=== PATIENT | male | born 1985 | race Caucasian/White ===

== ENCOUNTER → 2016-05-25 | Outpatient (CLI) | payer OTHER ==
--- NOTE | 2016-06-02 11:42 | SLEEPCENT ---
DATE OF STUDY: 05/25/2016 REFERRING PROVIDER: Dr. Rock Grove INTERPRETATION: Nocturnal polysomnography was performed for the evaluation of sleep apnea syndrome symptoms consisting of excessive daytime sleepiness, insomnia, snoring, morning headaches, nonrestorative sleep. A total of 6 hours and 39 minutes of data was reviewed with 299.5 minutes of sleep identified. Sleep latency was 35 minutes. No slow wave or deep sleep were seen. Sleep efficiency was reduced at 76%. Electrocardiogram (EKG) showed normal sinus rhythm with an average heart rate of 62 beats per minute. Speeding and slowing was noted surrounding some respiratory events. No epileptiform discharge was observed. There were 80 respiratory events identified of 10 seconds in duration or longer for an apnea-hypopnea index (AHI) of 16.0. Respiratory event related arousal (RERA) index was 5.2 and the total respiratory disturbance index (RDI) of 21.2. The events were predominantly obstructive hypopneas/apneas. In reviewing the tracing, there were many unscored events index higher. Arousal index was 33.3. Mean oxygen saturation for the study was 96% with a minimum recorded value of 89%. Periodic limb movement index was 17.2. IMPRESSION: 1. Obstructive sleep apnea, moderate. 2. Periodic limb movement, mild. RECOMMENDATIONS: Recommend the patient return to the sleep disorder center for the determination of pressure therapy. Pending this intervention, alcohol and sedative usage should be avoided and care should be taken when operating a motor vehicle.
== END ==
LOC: M SLEEP 20:17
PROVIDERS: ATTEND Internal Medicine Pulmonary Disease
DX: G47.39 Other sleep apnea (principal)

== ENCOUNTER 2016-06-20 23:44 | Emergency (ER) | payer OTHER ==
[~2016-06-20] VITALS: Ht 182.9 cm; Wt 86.2 kg
[2016-06-20] MEDS ORDERED: ADDE20CA PO (23:57)
[2016-06-20] MEDS ORDERED: PROZ20CA11 PO (23:57)
[2016-06-20] MEDS ORDERED: ADDE30CA PO (23:57)
[2016-06-21] MEDS ORDERED: ONDANSETRON 4MG/2ML VIAL (J2405) IV ONE (00:15)
[2016-06-21] MEDS ORDERED: KETOROLAC 30 MG/ML VIAL (J1885) IV ONE (00:15)
[2016-06-21] MEDS ORDERED: NS 1,000 ML IV ONE (00:15)
[2016-06-21 00:48] LABS: BASO # 0.1 K/mm3 (0.0-0.2); BASO % 0.9 % (0.0-1.0); EOS # 0.8 K/mm3 (0.0-0.50); EOS % 8.5 % (0.0-3.0); LARGE UNSTAINED CELL # 0.2 K/mm3 (0.0-0.4); LARGE UNSTAINED CELL % 1.9 % (0.0-4.0); LYMPH # 3.3 K/mm3 (1.5-6.5); LYMPH % 31.3 % (24.0-44.0); MEAN CORPUSCULAR HGB CONC 34.9 g/dl (32.0-36.5); MEAN CORPUSCULAR VOLUME 86.1 fl (80.0-96.0); MONO # 0.4 K/mm3 (0.0-0.8); MONO % 4.4 % (0.0-5.0); NEUTROPHILS # 5.2 K/mm3 (1.8-7.7); NEUTROPHILS % 52.9 % (36.0-66.0); PLATELET COUNT, AUTOMATED 302 k/mm3 (150-450); RED CELL DISTRIBUTION WIDTH 13.3 % (11.5-14.5); WHITE BLOOD COUNT 9.8 K/mm3 (4.0-10.0)
--- NOTE | 2016-06-21 00:50 | REPUSA ---
CT of the abdomen and pelvis without contrast Clinical statement: Pain. Technique: Multiple axial CT images were obtained from the base of the lungs to the floor of the pelv is utilizing 5 mm axial slices without administration of contrast. Coronal and sagittal reconstructio ns were also obtained. No comparison is available. Findings: Chest: The visualized lung bases are clear. Abdomen: The kidneys are normal in size bilaterally. There is no evidence of hydronephrosis or nephro lithiasis. The liver, spleen, pancreas, gallbladder and adrenal glands are unremarkable. The aorta de monstrates normal caliber and contour. There is no abdominal lymphadenopathy or ascites. Pelvis: The bowel is unremarkable, with no obstructive or inflammatory changes. The appendix is froylan l. The urinary bladder is within normal limits. There is no pelvic lymphadenopathy or ascites. The ot her pelvic structures appear unremarkable. Bones: There are no suspicious osseous abnormalities seen. Impression: Unremarkable CT examination of the abdomen and pelvis.
[2016-06-21 01:10] VITALS: BP 144/86
[2016-06-21 01:10] LABS: ALBUMIN 3.8 GM/DL (3.2-5.2); ALBUMIN/GLOBULIN RATIO 1.19 (1.00-1.93); ALKALINE PHOSPHATASE 78 U/L (45-117); ALT/SGPT 43 U/L (12-78); ANION GAP 7 MEQ/L (8-16); AST/SGOT 31 U/L (15-37); BILIRUBIN,DIRECT < 0.1 MG/DL (0.0-0.2); BILIRUBIN,TOTAL 0.3 MG/DL (0.2-1.0); BLOOD UREA NITROGEN 13 MG/DL (7-18); CARBON DIOXIDE LEVEL 27 MEQ/L (21-32); CHLORIDE LEVEL 106 MEQ/L (98-107); CREATININE FOR GFR 0.79 MG/DL (0.70-1.30); GLOMERULAR FILTRATION RATE > 60.0 (>60); GLUCOSE, FASTING 103 MG/DL (70-105); POTASSIUM SERUM 3.7 MEQ/L (3.5-5.1); SODIUM LEVEL 140 MEQ/L (136-145)
== END 2016-06-21 01:10 | disposition home or self-care (01) ==
LOC: M ED 06-21 00:27
DX: R10.9 Unspecified abdominal pain (principal); Z79.899 Other long term (current) drug therapy; Z91.030 Bee allergy status; F90.9 Attention-deficit hyperactivity disorder, unspecified type
CPT/HCPCS: 36415; 74176; 80048; 80076; 81001; 83690; 85025; 96361; 96374; 96375; 99282; J1885; J2405

== ENCOUNTER → 2016-07-03 | Outpatient (CLI) | payer OTHER ==
[~2016-07-03] MED LIST: ADDE20CA PO; ADDE30CA PO; PROZ20CA11 PO
--- NOTE | 2016-07-09 22:13 | SLEEPCENT ---
DATE OF PROCEDURE: 07/03/2016 REFERRING PHYSICIAN: Rock Romero MD INTERPRETATION: Nocturnal polysomnography was performed for the determination of pressure therapy in this patient with moderate obstructive sleep apnea with an apnea-hypopnea index (AHI) of 16 and respiratory disturbance index (RDI) of 21.2. Symptoms included excessive daytime sleepiness, insomnia, snoring, morning headaches, and nonrestorative sleep. A total of 7 hours and 29 minutes of data was reviewed with 348.5 minutes of sleep identified. Sleep latency was 53.5 minutes. Rapid eye movement (REM) latency was 72.5 minutes. No slow wave sleep was identified. Sleep efficiency was 79.1%. EKG showed sinus bradycardia with an average heart rate of 50 beats per minute. No epileptiform discharge observed. The patient had been fit with a ResMed Quattro FX full face mask of medium size, 4 cm of water pressure was applied to the circuit and the lights were dimmed. CPAP initially began at 4 cm of water pressure, was taken to a high of 12 cm of water pressure. It was felt that 6 cm of water pressure was adequate. There still appeared to be some change in flow in REM sleep on this pressure. However, on this pressure, his AHI was 0 and his respiratory arousal index (GERARD) was 6.9. Oxygen saturations were in the 90th percentile. No significant periodic limb movements. IMPRESSION: Obstructive sleep apnea (G47.33), moderate, reasonably palliated on CPAP at 6 cm of water pressure. The flow wave form tracing appeared somewhat limited in REM sleep. RECOMMENDATIONS: Recommend continuation of CPAP therapy at the above pressure via a medium ResMed Quattro FX full face mask or mask of his preference. Clinical correlation will be necessary to ensure eradication of symptoms. MTDD
== END ==
LOC: M SLEEP 20:09
PROVIDERS: ATTEND Internal Medicine Pulmonary Disease
DX: G47.33 Obstructive sleep apnea (adult) (pediatric) (principal)

== ENCOUNTER 2017-03-03 08:10 | Day surgery (SDC) | payer OTHER ==
[~2017-03-03] VITALS: Ht 182.9 cm; Wt 95.7 kg
[~2017-03-03 08:10] MED LIST changes: -ADDE20CA PO; +ADDE20CA3 PO; -ADDE30CA PO; +ADDE30CA3 PO; +BIMA01SOL OU; +FLUO20CA19 PO; +LORA10TA2 PO; +MELA3TAB PO; +MICA80TA PO; +NICO7DIS4 TOP; +PANT40TA2 PO
[2017-03-03] MEDS ORDERED: NS 1,000 ML IV ONE (08:15)
[2017-03-03] MEDS ORDERED: LIDOCAINE 2% INJ 100 MG/5 ML SDV (FOR ANES.) As Ordered ONE (09:14)
[2017-03-03] MEDS ORDERED: PROPOFOL 500 MG/50 ML VIAL As Ordered ONE (09:14)
[2017-03-03] MEDS ORDERED: MIDAZOLAM INJ 2 MG/2 ML VIAL (J2250) As Ordered ONE (09:28)
--- NOTE | 2017-03-03 09:32 | ROOR ---
Patient Name: Neto Shaw Procedure Date: 03/03/2017 9:12 AM Date of : 1985 Age: 32 Room: [facility] Gender: Male Note Status: Finalized Procedure: Upper Endoscopy + Biopsies Indications: Heartburn, Exclusion of Quintanilla's esophagus Providers: Gurjit Mishra MD Referring MD: JEVON MAS MD Requesting Provider: Medicines: Monitored Anesthesia Care Complications: No immediate complications. Procedure: Pre-Anesthesia Assessment: - The heart rate, respiratory rate, oxygen saturations, blood pressure, adequacy of pulmonary ventilation, and response to care were monitored throughout the procedure. The Endoscope was introduced through the mouth, and advanced to the second part of duodenum. The upper GI endoscopy was accomplished without difficulty. The patient tolerated the procedure well. Findings: The Z-line was irregular and was found 40 cm from the incisors. Multiple biopsies were obtained with cold forceps for evaluation to rule out Quintanilla's Esophagus randomly at the gastroesophageal junction. A small hiatal hernia was present. No other significant abnormalities were identified in a careful examination of the stomach. The exam of the duodenum was otherwise normal. Impression: - Z-line irregular, 40 cm from the incisors. - Small hiatal hernia. - Multiple biopsies were obtained at the gastroesophageal junction. - The examination was otherwise normal. Recommendation: - Patient has a contact number available for emergencies. The signs and symptoms of potential delayed complications were discussed with the patient. Return to normal activities tomorrow. Written discharge instructions were provided to the patient. - High fiber diet. - Discharge patient to home. - Follow an antireflux regimen. - Continue present medications. - Await pathology results. - Telephone GI clinic for pathology results in 1 week. - Return to referring physician. - The findings and recommendations were discussed with the patient's family. Gurjit Mihsra MD Gurjit Mishra MD 03/03/2017 9:32:02 AM This report has been signed electronically. Number of Addenda: 0 Note Initiated On: 03/03/2017 9:12 AM Estimated Blood Loss: Estimated blood loss: none.
--- NOTE | 2017-03-03 09:49 | ROOR ---
Patient Name: Neto Shaw Procedure Date: 03/03/2017 9:14 AM Date of : 1985 Age: 32 Room: [facility] Gender: Male Note Status: Finalized Procedure: Total Colonoscopy to Cecum + Bx. To r/o Microscopic Colitis Indications: Clinically significant diarrhea of unexplained origin Providers: Gurjit Mishra MD Referring MD: JEVON MAS MD Requesting Provider: Medicines: Monitored Anesthesia Care Complications: No immediate complications. Procedure: Pre-Anesthesia Assessment: - The heart rate, respiratory rate, oxygen saturations, blood pressure, adequacy of pulmonary ventilation, and response to care were monitored throughout the procedure. The Colonoscope was introduced through the anus and advanced to the cecum, identified by appendiceal orifice and ileocecal valve. The colonoscopy was performed without difficulty. The patient tolerated the procedure well. The quality of the bowel preparation was excellent. Findings: The perianal and digital rectal examinations were normal. Non-bleeding internal hemorrhoids were found during retroflexion. The hemorrhoids were small and Grade I (internal hemorrhoids that do not prolapse). No other significant abnormalities were identified in a careful examination of the remainder of the colon. Biopsies for histology were taken with a cold forceps from the ascending colon and transverse colon for evaluation of microscopic colitis. Impression: - Non-bleeding internal hemorrhoids. - Biopsies were taken with a cold forceps from the ascending colon and transverse colon for evaluation of microscopic colitis. - The exam was otherwise normal to the cecum. Recommendation: - Patient has a contact number available for emergencies. The signs and symptoms of potential delayed complications were discussed with the patient. Return to normal activities tomorrow. Written discharge instructions were provided to the patient. - High fiber diet. - Discharge patient to home. - Continue present medications. - Await pathology results. - Telephone GI clinic for pathology results in 1 week. - Check Portal Online for Path Results.([email or web address]) - The findings and recommendations were discussed with the patient's family. Gurjit Mishra MD Gurjit Mishra MD 03/03/2017 9:48:28 AM This report has been signed electronically. Number of Addenda: 0 Note Initiated On: 03/03/2017 9:14 AM Estimated Blood Loss: Estimated blood loss: none.
[2017-03-03 10:20] VITALS: BP 124/79
== END 2017-03-03 10:40 | disposition home or self-care (01) ==
LOC: M OPP 08:10
PROVIDERS: ATTEND Internal Medicine Gastroenterology
DX: R19.7 Diarrhea, unspecified (principal); K64.0 First degree hemorrhoids; R12 Heartburn; K22.8 Other specified diseases of esophagus; K44.9 Diaphragmatic hernia without obstruction or gangrene; I10 Essential (primary) hypertension; K21.9 Gastro-esophageal reflux disease without esophagitis; F41.9 Anxiety disorder, unspecified; F32.9 Major depressive disorder, single episode, unspecified; G47.30 Sleep apnea, unspecified; R06.83 Snoring; F17.210 Nicotine dependence, cigarettes, uncomplicated; Z91.030 Bee allergy status; Z79.899 Other long term (current) drug therapy
CPT/HCPCS: 43239; 45380; 88305; J2250

== ENCOUNTER 2020-08-08 12:02 | Emergency (ER) | payer OTHER, SELFPAY ==
[~2020-08-08] VITALS: Ht 182.9 cm; Wt 90.9 kg
[~2020-08-08 12:02] MED LIST changes: -FLUO20CA19 PO; +FLUO20CA20 PO; +FLUO20CA22 PO; +HYDR50CA2 PO; +LORA-243 PO; -LORA10TA2 PO; +LOSA100T5 PO; -MELA3TAB PO; +MELA3TAB70 PO; +NALT50TA4 PO; +NICO21PAT TD; -PANT40TA2 PO; +PANT40TA29 PO
[2020-08-08 12:37] LABS: HEMATOCRIT 43.3 % (42.0-52.0); HEMOGLOBIN 14.7 g/dl (13.5-17.5); MEAN CORPUSCULAR HEMOGLOBIN 31.5 pg (27.0-33.0); MEAN CORPUSCULAR HGB CONC 33.9 g/dl (32.0-36.5); MEAN CORPUSCULAR VOLUME 92.9 fl (80.0-96.0); PLATELET COUNT, AUTOMATED 281 10^3/uL (150-450); RED BLOOD COUNT 4.66 10^6/uL (4.30-6.10); WHITE BLOOD COUNT 9.6 10^3/uL (4.0-10.0)
[2020-08-08 13:13] LABS: ACETAMINOPHEN LEVEL < 2.0 UG/ML (10.0-30.0); ALT/SGPT 43 U/L (12-78); BILIRUBIN,DIRECT 0.3 MG/DL (0.0-0.2); BLOOD UREA NITROGEN 7 MG/DL (7-18); CALCIUM LEVEL 9.4 MG/DL (8.5-10.1); CARBON DIOXIDE LEVEL 27 MEQ/L (21-32); CHLORIDE LEVEL 105 MEQ/L (98-107); CREATININE FOR GFR 0.83 MG/DL (0.70-1.30); ETHYL ALCOHOL (ETHANOL) 0.128 % (0.000-0.010); GLOMERULAR FILTRATION RATE > 60.0 (>60); GLUCOSE, FASTING 106 MG/DL (70-100); POTASSIUM SERUM 3.9 MEQ/L (3.5-5.1); SALICYLATE LEVEL < 1.7 MG/DL (5.0-30.0); SODIUM LEVEL 139 MEQ/L (136-145); TOTAL PROTEIN 7.2 GM/DL (6.4-8.2)
[2020-08-08 13:18] LABS: AMPHETAMINES LEVEL URINE NEGATIVE (NEGATIVE); BARBITURATES URINE NEGATIVE (NEGATIVE); BENZODIAZEPINES URINE NEGATIVE (NEGATIVE); CANNABINOIDS URINE POSITIVE (NEGATIVE); COCAINE METABOLITE URINE NEGATIVE (NEGATIVE); METHADONE URINE NEGATIVE (NEGATIVE); OPIATES URINE NEGATIVE (NEGATIVE); PHENCYCLIDINE URINE NEGATIVE (NEGATIVE)
[2020-08-08] MEDS ORDERED: METOPROLOL TART 50 MG TAB PO ONE (13:20)
[2020-08-08] MEDS ORDERED: OXAZEPAM 15 MG CAP PO ONE (13:20)
[2020-08-08 13:41] VITALS: BP 169/104
[2020-08-08] MEDS ORDERED: NICOTINE 21MG/24HR 1 EA TRANSDERMAL TD ONE (19:50)
[2020-08-08 23:42] VITALS: BP 145/84
--- NOTE | 2020-08-09 20:27 | ECGEPIP ---
[facility] - ED Test Date: 2020-08-08 Pat Name: SHANTANU UP Department: Room: - Gender: Male Provider Network Analyst: NIECY : 1985 Requested By: TRELL García Order Number: [id number] Reading MD: Isis Corona Measurements Intervals [place] Rate: 57 P: 37 WA: 128 QRS: 61 QRSD: 92 T: 42 QT: 438 QTc: 426 Interpretive Statements Sinus bradycardia early repolarization Electronically Signed on 08-09-2020 20:27:05 EDT by Isis Corona
== END 2020-08-08 23:46 ==
LOC: M ED 12:02
DX: F32.9 Major depressive disorder, single episode, unspecified (principal); F10.10 Alcohol abuse, uncomplicated; R00.1 Bradycardia, unspecified; R45.851 Suicidal ideations; I10 Essential (primary) hypertension; H40.9 Unspecified glaucoma; F17.200 Nicotine dependence, unspecified, uncomplicated; Z79.899 Other long term (current) drug therapy

== ENCOUNTER → 2021-11-10 | Outpatient (CLI) | payer OTHER ==
[~2021-11-10] MED LIST changes: +FLUO-96 PO; -FLUO20CA20 PO
== END ==
LOC: M OUTALCOH 09:05
PROVIDERS: ATTEND Psychiatry & Neurology Psychiatry
DX: Z13.39 Encounter for screening examination for other mental health and behavioral disorders (principal)

== ENCOUNTER 2021-11-18 09:00 | Outpatient (RCR) | payer OTHER | END 2021-11-19 | LOC: M OUTALCOH 09:00 | PROVIDERS: ATTEND Psychiatry & Neurology Psychiatry | DX: F10.20 Alcohol dependence, uncomplicated (principal); F12.10 Cannabis abuse, uncomplicated; Z72.0 Tobacco use ==

== ENCOUNTER 2021-12-18 08:56 | Outpatient (RCR) | payer OTHER | END 2021-12-19 | LOC: M OUTALCOH 08:56 | PROVIDERS: ATTEND Psychiatry & Neurology Psychiatry | DX: F10.20 Alcohol dependence, uncomplicated (principal); F12.10 Cannabis abuse, uncomplicated; Z72.0 Tobacco use ==

== ENCOUNTER → 2022-01-19 | Outpatient (RCR) | payer OTHER | LOC: M OUTALCOH 12-23 16:07 | PROVIDERS: ATTEND Psychiatry & Neurology Psychiatry | DX: F10.20 Alcohol dependence, uncomplicated (principal); F12.10 Cannabis abuse, uncomplicated; Z72.0 Tobacco use ==

== ENCOUNTER 2022-02-17 08:00 | Outpatient (RCR) | payer OTHER | END 2022-02-18 | LOC: M OUTALCOH 08:00 | PROVIDERS: ATTEND Psychiatry & Neurology Psychiatry | DX: F10.20 Alcohol dependence, uncomplicated (principal); F12.10 Cannabis abuse, uncomplicated; Z72.0 Tobacco use ==

== ENCOUNTER 2022-03-13 11:00 | Outpatient (RCR) | payer OTHER | END 2022-03-21 | LOC: M OUTALCOH 11:00 | PROVIDERS: ATTEND Psychiatry & Neurology Psychiatry | DX: F10.20 Alcohol dependence, uncomplicated (principal); F12.10 Cannabis abuse, uncomplicated; Z72.0 Tobacco use ==

== ENCOUNTER → 2022-04-21 | Outpatient (RCR) | payer OTHER | LOC: M OUTALCOH 03-30 11:28 | PROVIDERS: ATTEND Psychiatry & Neurology Psychiatry | DX: F10.20 Alcohol dependence, uncomplicated (principal); F12.10 Cannabis abuse, uncomplicated; Z72.0 Tobacco use ==

== ENCOUNTER 2022-05-18 08:40 | Outpatient (RCR) | payer OTHER | END 2022-05-19 | LOC: M OUTALCOH 08:40 | PROVIDERS: ATTEND Psychiatry & Neurology Psychiatry | DX: F10.20 Alcohol dependence, uncomplicated (principal); F12.10 Cannabis abuse, uncomplicated; Z72.0 Tobacco use ==

== ENCOUNTER → 2022-06-19 | Outpatient (RCR) | payer OTHER | LOC: M OUTALCOH 05-20 12:47 | PROVIDERS: ATTEND Psychiatry & Neurology Psychiatry | DX: F10.20 Alcohol dependence, uncomplicated (principal); F12.10 Cannabis abuse, uncomplicated; Z72.0 Tobacco use ==

== ENCOUNTER 2022-07-17 08:40 | Outpatient (RCR) | payer OTHER | END 2022-07-19 | LOC: M OUTALCOH 08:40 | PROVIDERS: ATTEND Psychiatry & Neurology Psychiatry | DX: F10.20 Alcohol dependence, uncomplicated (principal); F12.10 Cannabis abuse, uncomplicated; Z72.0 Tobacco use ==

== ENCOUNTER 2022-07-24 08:40 | Outpatient (RCR) | payer OTHER ==
[2022-08-24] MEDS ORDERED: VIVI380I IM (09:57)
== END 2022-08-19 ==
LOC: M OUTALCOH 08:40
PROVIDERS: ATTEND Psychiatry & Neurology Psychiatry
DX: F10.20 Alcohol dependence, uncomplicated (principal); F17.200 Nicotine dependence, unspecified, uncomplicated

== ENCOUNTER → 2022-08-19 | Outpatient (CLI) | payer OTHER ==
[~2022-08-19] MED LIST changes: +VIVI380I IM
== END ==
LOC: M OUTALCOH 07:53
PROVIDERS: ATTEND Psychiatry & Neurology Psychiatry
DX: Z13.39 Encounter for screening examination for other mental health and behavioral disorders (principal)

== ENCOUNTER → 2022-09-02 | Outpatient (CLI) | payer OTHER ==
[2022-09-02 14:59] LABS: BASO # 0.1 10^3/uL (0.0-0.2); BASO % 0.8 % (0.0-1.0); EOS # 0.7 10^3/uL (0.0-0.5); HEMATOCRIT 42.7 % (42.0-52.0); HEMOGLOBIN 14.7 g/dl (13.5-17.5); LYMPH # 3.1 10^3/uL (1.5-5.0); LYMPH % 28.3 % (24.0-44.0); MEAN CORPUSCULAR HEMOGLOBIN 30.6 pg (27.0-33.0); MEAN CORPUSCULAR HGB CONC 34.4 g/dl (32.0-36.5); MEAN CORPUSCULAR VOLUME 88.8 fl (80.0-96.0); MONO # 0.6 10^3/uL (0.0-0.8); MONO % 5.8 % (2.0-8.0); NEUTROPHILS # 6.4 10^3/uL (1.5-8.5); NEUTROPHILS % 58.9 % (36.0-66.0); PLATELET COUNT, AUTOMATED 350 10^3/uL (150-450); RED BLOOD COUNT 4.81 10^6/uL (4.30-6.10); WHITE BLOOD COUNT 10.8 10^3/uL (4.0-10.0)
[2022-09-02 15:08] LABS: APPEARANCE, URINE CLEAR (CLEAR); BACTERIA, URINE AUTO NEGATIVE (NEGATIVE); BILIRUBIN, URINE AUTO NEGATIVE (NEGATIVE); BLOOD, URINE BLOOD NEGATIVE (NEGATIVE); COLOR, URINE STRAW (YELLOW); GLUCOSE, URINE (UA) AUTO NEGATIVE (NEGATIVE); KETONE, URINE AUTO NEGATIVE (NEGATIVE); LEUKOCYTE ESTERASE, URINE AUTO NEGATIVE (NEGATIVE); NITRITE, URINE AUTO NEGATIVE (NEGATIVE); PROTEIN, URINE AUTO NEGATIVE (NEGATIVE); RBC, URINE AUTO 2 /HPF (0-3); SPECIFIC GRAVITY URINE AUTO 1.009 (1.002-1.035); SQUAMOUS EPITHELIAL CELL UR AU 0 /HPF (0-6); UROBILINOGEN, URINE AUTO 0.2 mg/dL (0.0-2.0); WBC, URINE AUTO 4 /HPF (0-3)
[2022-09-02 15:27] LABS: BLOOD UREA NITROGEN 13 MG/DL (9-23); CALCIUM LEVEL 9.8 MG/DL (8.5-10.1); CARBON DIOXIDE LEVEL 26 MMOL/L (20-31); CHLORIDE LEVEL 104 MMOL/L (98-107); CREATININE FOR GFR 0.79 MG/DL (0.70-1.30); GLOMERULAR FILTRATION RATE > 60.0 (>60); GLUCOSE, FASTING 72 MG/DL (60-100); POTASSIUM SERUM 4.3 MMOL/L (3.5-5.1); SODIUM LEVEL 139 MMOL/L (136-145)
== END ==
LOC: M RAD 13:55
PROVIDERS: ATTEND Physician Assistant
DX: Z01.818 Encounter for other preprocedural examination (principal); Z79.899 Other long term (current) drug therapy

== ENCOUNTER → 2022-09-13 | Outpatient (CLI) | payer OTHER | LOC: M SLEEP 20:00 | PROVIDERS: ATTEND Internal Medicine | DX: G47.33 Obstructive sleep apnea (adult) (pediatric) (principal) ==

== ENCOUNTER → 2022-09-18 | Outpatient (RCR) | payer OTHER | LOC: M OUTALCOH 08-26 08:34 | PROVIDERS: ATTEND Psychiatry & Neurology Psychiatry | DX: F10.20 Alcohol dependence, uncomplicated (principal); F17.200 Nicotine dependence, unspecified, uncomplicated ==

== ENCOUNTER → 2022-10-19 | Outpatient (RCR) | payer OTHER | LOC: M OUTALCOH 09-21 08:06 | PROVIDERS: ATTEND Psychiatry & Neurology Psychiatry | DX: F10.20 Alcohol dependence, uncomplicated (principal); F17.200 Nicotine dependence, unspecified, uncomplicated ==

== ENCOUNTER → 2022-11-19 | Outpatient (RCR) | payer OTHER | LOC: M OUTALCOH 10-21 16:00 | PROVIDERS: ATTEND Psychiatry & Neurology Psychiatry | DX: F10.20 Alcohol dependence, uncomplicated (principal); F17.200 Nicotine dependence, unspecified, uncomplicated ==

== ENCOUNTER 2023-01-18 15:30 | Outpatient (RCR) | payer OTHER | END 2023-01-19 | LOC: M OUTALCOH 15:30 | PROVIDERS: ATTEND Psychiatry & Neurology Psychiatry | DX: F10.20 Alcohol dependence, uncomplicated (principal); F17.200 Nicotine dependence, unspecified, uncomplicated ==

== ENCOUNTER 2023-02-15 09:30 | Outpatient (RCR) | payer OTHER | END 2023-02-18 | LOC: M OUTALCOH 09:30 | PROVIDERS: ATTEND Psychiatry & Neurology Child & Adolescent Psychiatry | DX: F10.20 Alcohol dependence, uncomplicated (principal); F17.200 Nicotine dependence, unspecified, uncomplicated ==

== ENCOUNTER 2023-03-01 10:31 | Outpatient (RCR) | payer OTHER | END 2023-03-21 | LOC: M OUTALCOH 10:31 | PROVIDERS: ATTEND Psychiatry & Neurology Psychiatry | DX: F10.20 Alcohol dependence, uncomplicated (principal); F17.200 Nicotine dependence, unspecified, uncomplicated ==

== ENCOUNTER 2023-04-16 09:58 | Outpatient (RCR) | payer BC | END 2023-04-21 | LOC: M OUTALCOH 09:58 | PROVIDERS: ATTEND Psychiatry & Neurology Psychiatry | DX: F10.20 Alcohol dependence, uncomplicated (principal); F17.200 Nicotine dependence, unspecified, uncomplicated ==

== ENCOUNTER 2023-05-31 08:02 | Outpatient (RCR) | payer BC | END 2023-06-20 | LOC: M OUTALCOH 08:02 | PROVIDERS: ATTEND Psychiatry & Neurology Psychiatry | DX: F10.20 Alcohol dependence, uncomplicated (principal); F17.200 Nicotine dependence, unspecified, uncomplicated ==

== ENCOUNTER 2023-07-19 10:58 | Outpatient (RCR) | payer BC | END 2023-07-20 | LOC: M OUTALCOH 10:58 | PROVIDERS: ATTEND Psychiatry & Neurology Psychiatry | DX: F10.20 Alcohol dependence, uncomplicated (principal); F17.200 Nicotine dependence, unspecified, uncomplicated ==

== ENCOUNTER → 2023-07-28 | Outpatient (CLI) | payer OTHER | LOC: M RAD 13:35 | PROVIDERS: ATTEND Internal Medicine | DX: M54.12 Radiculopathy, cervical region (principal) ==

== ENCOUNTER → 2023-10-27 | Outpatient (CLI) | payer OTHER ==
[~2023-10-27] MED LIST changes: +FLUO-365 PO; -FLUO20CA22 PO
== END ==
LOC: M RAD 15:59
PROVIDERS: ATTEND Internal Medicine
DX: M47.26 Other spondylosis with radiculopathy, lumbar region (principal); M47.817 Spondylosis without myelopathy or radiculopathy, lumbosacral region

== ENCOUNTER → 2024-07-11 | Outpatient (CLI) | payer SELFPAY | LOC: M OUTALCOH 08:29 | PROVIDERS: ATTEND Psychiatry & Neurology Psychiatry | DX: F10.10 Alcohol abuse, uncomplicated (principal); F17.200 Nicotine dependence, unspecified, uncomplicated; F12.10 Cannabis abuse, uncomplicated ==

== ENCOUNTER 2024-09-22 11:39 | Emergency (ER) | payer OTHER ==
[~2024-09-22] VITALS: Ht 182.9 cm; Wt 81.0 kg
[2024-09-22] MEDS: MULTIVITAMINS/MINERALS THERAP 1 TAB PO SCH (09:00)
[2024-09-22] MEDS: FOLIC ACID 1 MG TAB PO SCH (09:00)
[2024-09-22] MEDS: THIAMINE 100 MG TAB PO SCH (09:00)
[2024-09-22] MEDS: NICOTINE 21MG/24HR 1 EA TRANSDERMAL TD ONE (12:11)
[2024-09-22 12:18] LABS: PLATELET COUNT, AUTOMATED 403 10^3/uL (150-450)
[2024-09-22 12:41] LABS: AMPHETAMINES LEVEL URINE NEGATIVE (NEGATIVE); BARBITURATES URINE NEGATIVE (NEGATIVE); BENZODIAZEPINES URINE NEGATIVE (NEGATIVE); COCAINE METABOLITE URINE NEGATIVE (NEGATIVE); METHADONE URINE NEGATIVE (NEGATIVE); OPIATES URINE NEGATIVE (NEGATIVE)
[2024-09-22 12:42] LABS: PHENCYCLIDINE URINE NEGATIVE (NEGATIVE)
[2024-09-22 12:44] LABS: CANNABINOIDS URINE POSITIVE (NEGATIVE)
[2024-09-22 12:46] LABS: ALT/SGPT 31 U/L (7.0-40); AST/SGOT 31 U/L (<34); CALCIUM LEVEL 9.7 MG/DL (8.5-10.1); CARBON DIOXIDE LEVEL 24 MMOL/L (20-31); CHLORIDE LEVEL 106 MMOL/L (98-107); CREATININE FOR GFR 0.90 MG/DL (0.70-1.30); GLOMERULAR FILTRATION RATE > 90.0 (>60); POTASSIUM SERUM 4.3 MMOL/L (3.5-5.1); SALICYLATE LEVEL < 3.0 MG/DL (<30); SODIUM LEVEL 144 MMOL/L (136-145)
[2024-09-22 13:26] LABS: ETHYL ALCOHOL (ETHANOL) 0.332 % (0.000-0.010)
[2024-09-22] MEDS ORDERED: HOME MED LIST COMPLETE! XX SCH (14:15)
[2024-09-22] MEDS: hydroCHLOROthiazide 25 MG TAB PO ONE (17:40)
[2024-09-22] MEDS: LOSARTAN 50 MG TABLET PO ONE (17:41)
[2024-09-22 21:58] VITALS: BP 163/95; TEMP 97.5; O2SAT 99
== END 2024-09-22 22:01 | disposition home or self-care (01) ==
LOC: M ED 11:39
DX: F10.129 Alcohol abuse with intoxication, unspecified (principal); I10 Essential (primary) hypertension

== ENCOUNTER 2024-10-13 15:00 | Outpatient (RCR) | payer OTHER ==
[~2024-10-13 15:00] MED LIST changes: -PROZ20CA11 PO; +PROZ20CA12 PO
== END 2024-10-19 ==
LOC: M OUTALCOH 15:00
PROVIDERS: ATTEND Psychiatry & Neurology Psychiatry
DX: F10.20 Alcohol dependence, uncomplicated (principal); F12.10 Cannabis abuse, uncomplicated; F17.200 Nicotine dependence, unspecified, uncomplicated

== ENCOUNTER 2024-10-20 19:47 | Emergency (ER) | payer OTHER ==
[~2024-10-20] VITALS: Ht 175.3 cm; Wt 79.0 kg
[2024-10-20 20:26] LABS: PLATELET COUNT, AUTOMATED 300 10^3/uL (150-450)
[2024-10-20 20:46] LABS: ALT/SGPT 59 U/L (7.0-40); AST/SGOT 55 U/L (<34); CALCIUM LEVEL 9.4 MG/DL (8.5-10.1); CARBON DIOXIDE LEVEL 26 MMOL/L (20-31); CHLORIDE LEVEL 102 MMOL/L (98-107); CREATININE FOR GFR 0.96 MG/DL (0.70-1.30); GLOMERULAR FILTRATION RATE > 90.0 (>60); POTASSIUM SERUM 4.4 MMOL/L (3.5-5.1); SALICYLATE LEVEL < 3.0 MG/DL (<30); SODIUM LEVEL 142 MMOL/L (136-145)
[2024-10-20 20:54] LABS: AMPHETAMINES LEVEL URINE NEGATIVE (NEGATIVE); BARBITURATES URINE NEGATIVE (NEGATIVE); BENZODIAZEPINES URINE NEGATIVE (NEGATIVE); CANNABINOIDS URINE NEGATIVE (NEGATIVE); COCAINE METABOLITE URINE NEGATIVE (NEGATIVE); METHADONE URINE NEGATIVE (NEGATIVE); OPIATES URINE NEGATIVE (NEGATIVE); PHENCYCLIDINE URINE NEGATIVE (NEGATIVE)
[2024-10-20 21:12] LABS: ETHYL ALCOHOL (ETHANOL) 0.324 % (0.000-0.010)
[2024-10-21 04:34] VITALS: O2SAT 98
[2024-10-21 07:21] VITALS: TEMP 98.7
[2024-10-21 07:22] VITALS: BP 157/108
[2024-10-21] MEDS ORDERED: ATEN25TA PO (07:46)
[2024-10-21] MEDS ORDERED: THIAMINE 100 MG TAB PO SCH (09:00)
[2024-10-21] MEDS ORDERED: FOLIC ACID 1 MG TAB PO SCH (09:00)
[2024-10-21] MEDS ORDERED: MULTIVITAMINS/MINERALS THERAP 1 TAB PO SCH (09:00)
== END 2024-10-21 08:15 | disposition home or self-care (01) ==
LOC: M ED 19:47
DX: F10.14 Alcohol abuse with alcohol-induced mood disorder (principal); I10 Essential (primary) hypertension; F32.A Depression, unspecified; F90.9 Attention-deficit hyperactivity disorder, unspecified type; F41.9 Anxiety disorder, unspecified; F17.200 Nicotine dependence, unspecified, uncomplicated; Z79.899 Other long term (current) drug therapy

== ENCOUNTER 2024-11-10 15:00 | Outpatient (RCR) | payer OTHER, SELFPAY ==
[~2024-11-10 15:00] MED LIST changes: +ATEN25TA PO
== END 2024-11-19 ==
LOC: M OUTALCOH 15:00
PROVIDERS: ATTEND Psychiatry & Neurology Psychiatry
DX: F10.20 Alcohol dependence, uncomplicated (principal); F12.10 Cannabis abuse, uncomplicated; F17.200 Nicotine dependence, unspecified, uncomplicated

== ENCOUNTER → 2024-12-04 | Outpatient (CLI) | payer SELFPAY | LOC: M OUTALCOH 07:59 | PROVIDERS: ATTEND Psychiatry & Neurology Psychiatry | DX: F10.20 Alcohol dependence, uncomplicated (principal); F12.10 Cannabis abuse, uncomplicated; F17.200 Nicotine dependence, unspecified, uncomplicated ==

== ENCOUNTER 2024-12-18 08:40 | Outpatient (RCR) | payer OTHER, SELFPAY | END 2024-12-19 | LOC: M OUTALCOH 08:40 | PROVIDERS: ATTEND Psychiatry & Neurology Psychiatry | DX: F10.20 Alcohol dependence, uncomplicated (principal); F12.10 Cannabis abuse, uncomplicated; F17.200 Nicotine dependence, unspecified, uncomplicated ==

== ENCOUNTER → 2025-01-19 | Outpatient (RCR) | payer SELFPAY | LOC: M OUTALCOH 12-20 16:18 | PROVIDERS: ATTEND Psychiatry & Neurology Psychiatry | DX: F10.20 Alcohol dependence, uncomplicated (principal); F12.10 Cannabis abuse, uncomplicated; F17.200 Nicotine dependence, unspecified, uncomplicated ==

== ENCOUNTER 2025-02-14 08:40 | Outpatient (RCR) | payer SELFPAY ==
[~2025-02-14 08:40] MED LIST changes: -PROZ20CA12 PO; +PROZ20CA25 PO
== END 2025-02-18 ==
LOC: M OUTALCOH 08:40
PROVIDERS: ATTEND Psychiatry & Neurology Psychiatry
DX: F10.20 Alcohol dependence, uncomplicated (principal); F12.10 Cannabis abuse, uncomplicated; F17.200 Nicotine dependence, unspecified, uncomplicated

== ENCOUNTER 2025-03-20 16:00 | Outpatient (RCR) | payer SELFPAY | END 2025-03-21 | LOC: M OUTALCOH 16:00 | PROVIDERS: ATTEND Psychiatry & Neurology Psychiatry | DX: F10.20 Alcohol dependence, uncomplicated (principal); F12.10 Cannabis abuse, uncomplicated; F17.200 Nicotine dependence, unspecified, uncomplicated ==